=== PATIENT | male | born 1995 | race African-American/Black ===

== ENCOUNTER 2023-03-05 21:30 | Emergency (ER) | payer OTHER ==
[2023-03-05 21:47] VITALS: O2SAT 100
--- NOTE | 2023-03-05 22:06 | ED Physician Documentation ---
History of Present Illness - Stated complaint Stated Complaint: ALLEN/STIFF CHEST - Chief complaint Chief Complaint: General - History obtained from History obtained from: Patient - Additonal information Additional information: Otherwise healthy 28-year-old gentleman went to sleep with his on the couch last night at the usual time. She was awoken at about 4 AM and noticed his head twitching. She did not think anything else was twitching. She tried to wake him up but he was unarousable. He got up his normal time at 545 when his alarm went off. He notes a very mild right-sided headache with some back and chest stiffness since then. He just does not feel quite right. He denies nausea, vomiting, visual complaints, history of seizure, history of migraines, any other neurologic problems in the past. Does not take any medications. PD PAST MEDICAL HISTORY - Past Medical History Past Medical History: No - Past Surgical History Past Surgical History: No - Allergies Allergies/Adverse Reactions: Allergies Allergy/AdvReac Type Severity Reaction Status Date / Time No Known Drug Allergies Allergy Verified 03/05/23 21:42 - Social History Does the pt smoke?: No Smoking Status: Never smoker Does the pt drink ETOH?: No Does the pt have substance abuse?: No - Immunizations Immunizations are current?: Yes - POLST Patient has POLST: No PD ED PE NORMAL - Vitals Vital signs reviewed: Yes - General General: Alert and oriented X 3, No acute distress - HEENT HEENT: PERRL, EOMI - Neck Neck: Supple, no meningeal sign, No bony TTP - Cardiac Cardiac: RRR, No murmur - Respiratory Respiratory: No respiratory distress, Clear bilaterally - Abdomen Abdomen: Non tender - Neuro Neuro: Alert and oriented X 3, 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 Relevant findings are: Rate: Rate (enter#) (78) Rhythm: NSR [place]: Normal Intervals: Normal [place] QRS: Normal Ischemia: Normal ST segments - Labs Labs: Laboratory Tests 03/05/23 03/05/23 22:12 22:12 WBC 7.4 RBC 5.21 Hgb 15.0 Hct 47.0 MCV 90.2 MCH 28.8 MCHC 31.9 L RDW 12.4 Plt Count 209 MPV 10.6 Neut # (Auto) 3.8 Lymph # (Auto) 3.0 [place] # (Auto) 0.6 Eos # (Auto) 0.0 Baso # (Auto) 0.1 Absolute Nucleated RBC 0.00 Nucleated RBC % 0.0 Sodium 138 Potassium 3.8 Chloride 104 Carbon Dioxide 29 Anion Gap 5.0 L BUN 11 Creatinine 1.1 Estimated GFR (MDRD) 97 Glucose 98 Calcium 10.1 Magnesium 1.9 Total Bilirubin 0.3 AST 16 ALT 17 Alkaline Phosphatase 60 Total Protein 8.2 Albumin 4.9 Globulin 3.3 Albumin/Globulin Ratio 1.5 PD Medical Decision Making - ED course ED course: 28-year-old gentleman with odd symptoms of shaking in his sleep last night and hard to arouse but still got up at normal time and now feels stiff today. I suppose it could have been seizure, but the did not really describe a seizure per se just shaking of the head. Out of an abundance of caution an EKG, labs, and head CT were ordered. CBC and CMP and EKG were unremarkable. Care to Dr Nieves at 11p change of shift pending CT head. Departure - Departure Disposition: 01 Home, Self Care Clinical Impression: Episode of shaking, Stiffness of joint, not elsewhere classified, other specified site Condition: Good Record reviewed to determine appropriate education?: Yes Instructions: ED Acute Pain [facility] Comments: Cause of your symptoms is not clear tonight, but rest assured that blood work, EKG, and head CT were normal. Call your doctor to arrange a follow-up appointment, make the next available appointment. In the interim, return anytime if worse or if new symptoms develop. Forms: PCP List Discharge Date/Time: 03/06/23 02:21
[2023-03-05 22:16] LABS: BASOPHILS # (AUTO) 0.1 10^3/uL (0.0-0.1); BASOPHILS % (AUTO) 0.7 %; EOSINOPHILS % (AUTO) 0.5 %; LYMPHOCYTES % (AUTO) 40.1 %; MEAN CORPUSCULAR HEMOGLOBIN 28.8 pg (27.0-31.0); MEAN CORPUSCULAR HGB CONC 31.9 g/dL (32.0-36.0); MEAN CORPUSCULAR VOLUME 90.2 fL (80.0-94.0); MEAN PLATELET VOLUME 10.6 fL (7.4-11.4); MONOCYTES # (AUTO) 0.6 10^3/uL (0.0-1.0); NEUTROPHILS # (AUTO) 3.8 10^3/uL (1.5-6.6); NEUTROPHILS % (AUTO) 50.6 %; PLT - PLATELET COUNT 209 10^3/uL (130-450); RED BLOOD COUNT 5.21 10^6/uL (4.70-6.10); RED CELL DISTRIBUTION WIDTH 12.4 % (12.0-15.0); WHITE BLOOD COUNT 7.4 x10^3/uL (4.8-10.8)
[2023-03-05 22:33] LABS: ALBUMIN 4.9 g/dL (3.2-5.5); ALBUMIN/GLOBULIN RATIO 1.5 (1.0-2.2); BILIRUBIN,TOTAL 0.3 mg/dL (0.2-1.0); CALCIUM 10.1 mg/dL (8.5-10.3); CREATININE 1.1 mg/dL (0.6-1.3); MAGNESIUM 1.9 mg/dL (1.7-2.3); POTASSIUM 3.8 mmol/L (3.5-4.5); TOTAL PROTEIN 8.2 g/dL (6.4-8.9)
--- NOTE | 2023-03-06 01:32 | CT Report ---
PROCEDURE: HEAD WO INDICATIONS: shaking TECHNIQUE: Noncontrast 4.5 mm thick angled axial sections acquired from the foramen magnum to the vertex. For r adiation dose reduction, the following was used: automated exposure control, adjustment of mA and/or kV according to patient size. COMPARISON: None. FINDINGS: Image quality: Excellent. CSF spaces: Basal cisterns are patent. No extra-axial fluid collections. Ventricles are normal in size and shape. Brain: No midline shift. No intracranial masses or hemorrhage. French-white matter interface is norm al. Skull and face: Calvarium and visualized facial bones are intact, without suspicious lesions. Sinuses: Visualized sinuses and mastoids are clear. IMPRESSION: No acute intracranial pathology. Reviewed by: Lawson Byrne MD on 03/06/2023 1:31 AM [facility] Approved by: Lawson Byrne MD on 03/06/2023 1:31 AM [facility] Station ID: [id number]
--- NOTE | 2023-03-06 02:08 | ED Physician Documentation ---
ED Addendum - Addendum Addendum: 03/06/23 02:07 I received signout/turnover of care on this patient from Dr. Kim; please see his note for complete H&P. At the time of signout, results of CT head were pending. The CT head is interpreted by the radiologist as"no acute intracranial pathology". I discussed this result with the patient. He is awake, alert, oriented x 3, and in no apparent/acute distress. Return precautions are discussed and I advised patient to contact his primary care provider in the morning when the office opens to arrange for next available appointment for reevaluation.
[2023-03-06 02:23] VITALS: BP 124/92
== END 2023-03-06 02:21 | disposition home or self-care (01) ==
LOC: ED 21:30
DX: R56.9 Unspecified convulsions (principal); M25.69 Stiffness of other specified joint, not elsewhere classified
CPT/HCPCS: 36415; 80053; 83735; 85025; 93005; 99284